=== PATIENT | male | born 1965 | race African-American/Black ===

== ENCOUNTER 2019-12-23 07:02 | Emergency (ER) | payer OTHER, MEDICAID, SELFPAY ==
[2019-12-23 07:03] VITALS: BP 188/144; PULSE 131; RESP 24; TEMP 36.9; O2SAT 98; BMI 29.9
--- NOTE | 2019-12-23 07:24 | ED.CHESTPAIN ---
HPI - Chest Pain General Chief Complaint: Chest Pain Stated Complaint: thinks he is having anxiety attack Time Seen by Provider: 12/23/19 07:08 Source: patient Mode of arrival: Ambulatory Limitations: no limitations History of Present Illness HPI narrative: Patient is a 54-year-old male who presents with heart palpitations and thinking he has an anxiety reaction. He recently started a new job with to go decreased he was supposed to get paid his on Sunday however it was not deposited in his bank account his is needing money he overall is very stressed out about this situation. He woke up this morning and felt like his heart was pounding any had some chest discomfort. He also feels like he is dizzy and lightheaded at times. He is intermittently short of breath but not with exertion. He is noted to be tachycardic in the 130s. He admits to drinking alcohol at least 4 beers on a daily basis. Yesterday he had 2 beers and 2 shots of whiskey. MD complaint: other (Palpitations) Review of Systems Review of Systems Narrative: GENERAL: Denies chills, fatigue, malaise, fever, sweats, travel HEENT: Denies sinus pain, ear pain, sore throat, difficulty swallowing, neck pain RESPIRATORY: Denies dyspnea, cough, wheezing, hemoptysis, sputum. CARDIOVASCULAR: See HPI GASTROINTESTINAL: Denies nausea, vomiting, abdominal pain, diarrhea, constipation, melena. : Denies dysuria, frequency, incontinence, hematuria, urinary retention, flank pain. MUSCULOSKELETAL: Denies weakness, joint pain, or bony pain SKIN: No rash, no erythema, no pruritus NEUROLOGIC: Denies weakness, dizziness, headache, numbness, change in speech, confusion PSYCHIATRIC: No concerning psychosocial issues. 12 point review of systems is negative except for those stated above and HPI Patient History Medical History Depression (Acute) Social History Smoking Status: Current every day smoker Smoking Status: Current every day smoker alcohol intake frequency: 3 or more drinks per day Alcohol type: beer Substance Use Type: does not use Exam Initial Vital Signs Initial Vital Signs: Vital Signs Temperature 98.5 F 12/23/19 07:03 Pulse Rate 131 H 12/23/19 07:03 Respiratory Rate 24 02/04/20 07:03 Blood Pressure 188/144 H 12/23/19 07:03 Pulse Oximetry 98 12/23/19 07:03 GENERAL: Well-appearing, well-nourished and in no acute distress. HEENT: Head atraumatic,EOMI, pupils reactive CARDIOVASCULAR: Tachycardic regular no murmur RESPIRATORY: Breath sounds equal bilaterally, no wheezes rales or rhonchi. ABDOMEN: Soft, nontender. Normoactive bowel sounds all 4 quadrants. No guarding or rebound. EXTREMITIES: Normal range of motion, no clubbing or edema. Neurovascularly intact NEUROLOGICAL: Alert and oriented x4.Normal gait and speech. Cranial nerves II through XII grossly intact. SKIN: Warm, dry, no laceration, no petechiae, no rashes or lesions. Scores HEART Score Heart Score history: Slightly Suspicious Heart Score EKG: Normal Heart Score Age: 45-64 years old Heart Score risk factors: No known risk factors Heart Score troponin: < or = to normal limit Heart Score Total: 1 PERC Score Age greater than or equal to 50 years: No Heart rate greater than or equal to 100 bpm: Yes Room Air O2 Sat less than 95%: No Unilateral leg swelling: No Recent trauma or surgery: No Hemoptysis: No Prior PE or DVT: No Hormone Use: No Total PERC Score: 1 Course Orders Ordered: ED Orders 12/23/19 07:42 XR chest 1V Stat 12/23/19 07:45 Complete Blood Count AUTO DIFF Stat Comprehensive Metabolic Panel Stat D Dimer Stat Lipase Stat Troponin & CK Cardiac Panel Stat Discontinued Medications Aspirin (Aspirin Chew) 324 mg PO NOW ONE Stop: 12/23/19 07:43 Last Admin: 12/23/19 08:03 Dose: 324 mg Documented by: BTONER Sodium Chloride (Normal Saline 0.9%) 1,000 mls @ 1,000 mls/hr IV CONT LUIS E Last Admin: 12/23/19 08:03 Dose: 1,000 mls/hr Documented by: BTONER Lorazepam (Ativan) 1 mg PO NOW ONE Stop: 12/23/19 07:43 Last Admin: 12/23/19 08:03 Dose: 1 mg Documented by: BTONER Vital Signs Vital signs: Vital Signs - 8 hr 12/23/19 07:03 12/23/19 08:00 12/23/19 09:00 Temperature 98.5 F Pulse Rate 131 H 123 H 112 H Respiratory Rate 24 18 14 Blood Pressure 188/144 H Blood Pressure [Left Arm] 145/99 H 172/105 H Pulse Oximetry 98 96 99 MDM - Chest Pain Lab Data Attestation: I reviewed the patient's lab results. Result diagrams: 12/23/19 07:45 12/23/19 07:45 Labs: Lab Results 12/23/19 12/23/19 12/23/19 Range/Units 07:45 07:45 07:45 WBC 5.1 (4.5-11.0) X10^3/uL RBC 5.39 (4.5-5.9) X10^6/uL Hgb 15.5 (13.5-17.5) g/dL Hct 45.1 (41-53) % MCV 83.8 (80-100) fL MCH 28.8 (26-34) PG MCHC 34.3 (30-36) % RDW 14.0 (11.6-14.8) % Plt Count 263 (150-400) X10^3/uL Neut % (Auto) 57.7 (50-75) % Lymph % (Auto) 32.3 (25-40) % [place] % (Auto) 7.2 (3-14) % Eos % (Auto) 1.8 L (2-4) % Baso % (Auto) 1.0 (0-2) % Neut # (Auto) 2900 (4003-5728) /uL Lymph # (Auto) 1600 (8875-7657) /uL [place] # (Auto) 400 (0-900) /uL Eos # (Auto) 100 (0-450) /uL Baso # (Auto) 0 (0-100) /uL D-Dimer < 200 (<230) ng/mL Sodium 137 (137-145) mmol/L Potassium 4.4 (3.4-5.1) mmol/L Chloride 103 (98-107) mmol/L Carbon Dioxide 23 (22-32) mmol/L BUN 14 (9-20) mg/dL Creatinine 1.00 (0.66-1.25) mg/dL Estimated GFR > 60.0 (>60) mL/min BUN/Creatinine Ratio 14.0 (6-22) Glucose 112 H (70-100) mg/dL Calcium 9.8 (8.4-10.2) mg/dL Total Bilirubin 0.9 (0.2-1.3) mg/dL AST 52 (17-59) IU/L ALT 46 (<50) IU/L Alkaline Phosphatase 105 (38-126) U/L Total Creatine Kinase 303 H (55-170) U/L CK-MB (CK-2) 1.23 (<2.37) ng/mL CK-MB (CK-2) Rel Index 0.4 L (1.5-5.0) % Troponin I < 0.012 (0.01-0.034) ng/mL Total Protein 9.1 H (6.3-8.2) g/dL Albumin 5.0 (3.5-5.0) g/dL Globulin 4.1 (1.7-4.1) g/dL Albumin/Globulin Ratio 1.2 (1.0-2.8) Lipase 99 (23-300) U/L Imaging Data Chest x-ray: Radiologist's Impression: PROCEDURE: XR CHEST 1V INDICATIONS: chest pain TECHNIQUE: One view of the chest was acquired. COMPARISON: None. FINDINGS: Surgical changes and devices: None. Lungs and pleura: Lungs are clear. No pleural effusions or pneumothorax. Mediastinum: Mediastinal contours appear normal. Heart size is normal. Bones and chest wall: No suspicious bony lesions. Overlying soft tissues appear unremarkable. IMPRESSION: Normal for age, source of current chest pain symptoms is not seen. Dictated by: Schuyler Burden M.D. on 12/23/2019 at 8:17 Approved by: Schuyler Burden M.D. on 12/23/2019 at 8:18 ECG Data Attestation: I personally reviewed and interpreted this ECG as follows: Prior ECG tracings: not available for review Interpretation: Sinus tachycardia rate 128 p.r. interval 150 QRS [address] elevation depression or T-wave inversions no priors to compare MDM Narrative Medical decision making narrative: Patient's heart rate significantly improved with Ativan and IV fluids. I think his symptoms are related to his situation. He has a negative D-dimer and low risk for PE. His troponin is also negative. Discharge Plan Departure Patient Disposition: Home Clinical Impression: Anxiety Discharge Date/Time: 12/23/19 09:54 Instructions: Anxiety Disorders Activity Restrictions/Additional Instructions: *You have been diagnosed with anxiety *What to do: At this time blood work is overall reassuring, what he likely fell today was anxiety *Continue to take medications as directed *Follow up with your primary care provider in 2-3 days *Return to ER if you should have increasing chest pain palpitations passing out or any new, worsening or concerning symptoms Stand Alone Forms: Work Release Note
--- NOTE | 2019-12-23 07:42 | DI.RAD.S_ITS ---
PROCEDURE: XR CHEST 1V INDICATIONS: chest pain TECHNIQUE: One view of the chest was acquired. COMPARISON: None. FINDINGS: Surgical changes and devices: None. Lungs and pleura: Lungs are clear. No pleural effusions or pneumothorax. Mediastinum: Mediastinal contours appear normal. Heart size is normal. Bones and chest wall: No suspicious bony lesions. Overlying soft tissues appear unremarkable. IMPRESSION: Normal for age, source of current chest pain symptoms is not seen. Dictated by: Schuyler Burden M.D. on 12/23/2019 at 8:17 Approved by: Schuyler Burden M.D. on 12/23/2019 at 8:18
[2019-12-23 08:00] VITALS: BP 145/99; PULSE 123; RESP 18; O2SAT 96
[2019-12-23] MEDS: LORazepam 0.5 MG TABLET 1 MG PO (08:03)
[2019-12-23] MEDS: SODIUM CHLORIDE 0.9% 1,000 ML 1000 ML IV (08:03)
[2019-12-23] MEDS: ASPIRIN 81 MG CHEW TAB 324 MG PO (08:03)
[2019-12-23 08:09] LABS: Add Manual Diff / Slide Review NO; Basophils Absolute Auto 0 /uL (0-100); Eosinophils Absolute Auto 100 /uL (0-450); Eosinophils Percent Auto 1.8 % (2-4); Hematocrit 45.1 % (41-53); Hemoglobin 15.5 g/dL (13.5-17.5); Lymphocytes Absolute Auto 1600 /uL (1100-4500); Lymphocytes Percent Auto 32.3 % (25-40); Mean Corpuscular HGB Conc 34.3 % (30-36); Mean Corpuscular Hemoglobin 28.8 PG (26-34); Mean Corpuscular Volume 83.8 fL (80-100); Monocytes Absolute Auto 400 /uL (0-900); Monocytes Percent Auto 7.2 % (3-14); Neutrophils Absolute Auto 2900 /uL (1500-7000); Neutrophils Percent Auto 57.7 % (50-75); Platelet Count 263 X10^3/uL (150-400); Red Blood Cell Count 5.39 X10^6/uL (4.5-5.9); White Blood Cell Count 5.1 X10^3/uL (4.5-11.0)
[2019-12-23 08:13] LABS: Alanine Aminotransferase 46 IU/L (<50); Albumin Globulin Ratio 1.2 (1.0-2.8); Alkaline Phosphatase 105 U/L (38-126); Aspartate Aminotransferase 52 IU/L (17-59); Bilirubin Total 0.9 mg/dL (0.2-1.3); Blood Urea Nitrogen 14 mg/dL (9-20); Calcium 9.8 mg/dL (8.4-10.2); Carbon Dioxide 23 mmol/L (22-32); Chloride 103 mmol/L (98-107); Creatine Kinase 303 U/L (55-170); Estimated Glomerular Filt Rate > 60.0 mL/min (>60); Globulin 4.1 g/dL (1.7-4.1); Glucose 112 mg/dL (70-100); HEMOLYSIS < 15 (0-50); Lipase 99 U/L (23-300); Potassium 4.4 mmol/L (3.4-5.1); Sodium 137 mmol/L (137-145); Total Protein 9.1 g/dL (6.3-8.2)
[2019-12-23 08:25] LABS: Troponin I < 0.012 ng/mL (0.01-0.034)
[2019-12-23 08:28] LABS: CKMB % Relative Index 0.4 % (1.5-5.0); Creatine Kinase MB 1.23 ng/mL (<2.37)
[2019-12-23 08:37] LABS: D Dimer < 200 ng/mL (<230)
[2019-12-23 09:00] VITALS: BP 172/105; PULSE 112; RESP 14; O2SAT 99
--- NOTE | 2020-01-06 11:53 | PC.NURSE ---
Late entry: NS started 08:03 @ 1000cc/hour completed 929. 1000 cc infused. No ill effect.
== END 2019-12-23 09:54 | disposition home or self-care (01) ==
PROVIDERS: Emergency Provider Emergency Medicine
DX: F41.9 Anxiety disorder, unspecified (principal); F32.9 Major depressive disorder, single episode, unspecified; R07.9 Chest pain, unspecified
CPT/HCPCS: 36415; 71045; 80053; 82550; 82553; 83690; 84484; 85025; 85379; 93005; 96360; 99284; 99285

== ENCOUNTER 2020-01-19 05:58 | Emergency (ER) | payer OTHER, MEDICAID, SELFPAY ==
--- NOTE | 2020-01-19 06:04 | ED_ITS ---
HPI - Dizziness <Cj Peace DO - Last Filed: 01/21/20 18:20> General Chief Complaint: Hypertension Stated Complaint: States dizzy spell, BP is up headache Time Seen by Provider: 01/19/20 06:03 Source: patient Mode of arrival: Ambulatory Limitations: no limitations History of Present Illness HPI Narrative: 54-year-old male daily smoker with history of anxiety and hypertension presents with a chief complaint of high blood pressure this morning along with headache and some fatigue. He states that he has been without his medications for about 3-4 days because he ran out. Though he has lived here for 3 months (he is from [place]) he has yet to establish with a primary care provider. He denies any significant chest pain or shortness of breath. He denies any fever, chills or cough. MD complaint: dizziness and lightheadedness Onset (ago): hour(s) Timing: gradual onset Description: lightheadedness History of similar episodes: Yes History of trauma: No Severity: moderate Relieving factors: nothing Exacerbating factors: nothing Related Data Previous Rx's Medication Instructions Recorded hydrochlorothiazide 25 mg PO DAILY #10 tab 01/19/20 Allergies Allergy/AdvReac Type Severity Reaction Status Date / Time No Known Drug Allergies Allergy Verified 01/19/20 07:02 Review of Systems <DO Bryn Sinclair Last Filed: 01/21/20 18:20> Constitutional Constitutional: Denies chills, Denies fatigue, Denies fever(s), Denies frequent falls, Reports headache(s), Denies lethargy and Denies weakness Eyes Eyes: Denies change in vision, Denies eye discharge, Denies irritation and Denies loss of vision ENT Ears, Nose, Mouth, and Throat: Denies change in voice, Denies dizziness, Reports headache(s), Denies neck pain, Denies sore throat and Denies throat swelling Cardiovascular Cardiovascular: Denies chest pain, Denies irregular heart rhythm, Reports lightheadedness, Denies palpitations, Denies dyspnea, Denies dyspnea on exertion and Denies orthopnea Respiratory Respiratory: Denies cough, Denies dyspnea, Denies dyspnea on exertion and Denies wheezing Gastrointestinal Gastrointestinal: Denies abdominal pain, Denies change in bowel habits, Denies diarrhea, Denies nausea and Denies vomiting Genitourinary Genitourinary: Denies hematuria, Denies flank pain, Denies urinary incontinence and Denies urinary urgency Musculoskeletal Musculoskeletal: Denies back pain, Denies muscle weakness, Denies neck pain, Denies numbness and Denies tingling Integumentary/Breasts Skin/Breast: Denies pruritus, Denies erythema, Denies rash and Denies wounds Neurologic Neurologic: Denies behavioral changes, Denies confusion, Denies dizziness, De nies frequent falls, Reports headache(s), Denies loss of vision, Denies numbness, Denies tingling and Denies weakness Psychiatric Psychiatric: Denies anxiety, Denies behavioral changes, Denies confusion, Denies depression, Denies homicidal ideation and Denies suicidal ideation Endocrine Endocrine: Denies fatigue, Denies flushing and Denies palpitations Hematologic/Lymphatic Hematologic/Lymphatic: Denies easy bruising Allergic/Immunologic Allergic/Immunologic: Denies urticaria, Denies throat swelling and Denies wheezing Patient History <Cj Peace DO - Last Filed: 01/21/20 18:20> Medical History Depression (Acute) Social History Smoking Status: Current every day smoker Smoking Status: Current every day smoker alcohol intake frequency: 3 or more drinks per day Alcohol type: beer Substance Use Type: does not use Exam <Cj Peace DO - Last Filed: 01/21/20 18:20> Narrative Exam Narrative: GENERAL: [54] year old patient appears stated age. Well- nourished, well-developed patient, in mild distress. Anxious HEAD: Atraumatic. Normocephalic. EYES: Pupils equal round and reactive. Extraocular motions intact. No scleral icterus. No injection or drainage. ENT: Nose without bleeding, purulent drainage. Throat without erythema, tonsillar hypertrophy or exudate. Airway patent. NECK: Trachea midline. Non tender CARDIOVASCULAR: Regular rate and rhythm without murmurs, gallops, or rubs. RESPIRATORY: Clear to auscultation. Breath sounds equal bilaterally. No wheezes, rales, or rhonchi. GASTROINTESTINAL: Abdomen soft, non-tender, nondistended. EXTREMITIES: No edema or joint tenderness. BACK: Nontender without deformity or crepitance. No flank tenderness. NEURO: AOx3. SKIN: No rash or erythema of visible areas Initial Vital Signs Initial Vital Signs: Vital Signs Temperature 99.0 F 01/19/20 06:18 Pulse Rate 118 H 01/19/20 06:18 Respiratory Rate 20 01/19/20 06:18 Blood Pressure 212/116 H 01/19/20 06:18 Pulse Oximetry 99 01/19/20 06:18 <Surjit Martinez DO - Last Filed: 01/19/20 08:50> Initial Vital Signs Initial Vital Signs: Vital Signs Temperature 99.0 F 01/19/20 06:18 Pulse Rate 118 H 01/19/20 06:18 Respiratory Rate 20 01/19/20 06:18 Blood Pressure 212/116 H 01/19/20 06:18 Pulse Oximetry 99 01/19/20 06:18 Course <Cj Peace DO - Last Filed: 01/21/20 18:20> Orders Ordered: Discontinued Medications Aspirin (Aspirin Chew) 324 mg PO NOW ONE Stop: 01/19/20 06:47 Last Admin: 01/19/20 06:56 Dose: 324 mg Documented by: SVETLANA Sodium Chloride (Normal Saline 0.9%) 1,000 mls @ 150 mls/hr IV CONT LUIS E Last Infusion: 01/19/20 09:06 Dose: 0 mls/hr Documented by: Admin: 01/19/20 06:55 Dose: 150 mls/hr Documented by: SVETLANA Ketorolac Tromethamine (Toradol) 15 mg IV NOW ONE Stop: 01/19/20 07:43 Last Admin: 01/19/20 07:54 Dose: 15 mg Documented by: KOREY Labetalol HCl (Trandate) 10 mg IV NOW ONE Stop: 01/19/20 06:47 Last Admin: 01/19/20 06:56 Dose: 10 mg Documented by: SVETLANA Lorazepam (Ativan) 0.5 mg IV NOW ONE Stop: 01/19/20 07:43 Last Admin: 01/19/20 07:55 Dose: 0.5 mg Documented by: KOREY Vital Signs Vital signs: Vital Signs - 8 hr 01/19/20 06:18 01/19/20 06:56 01/19/20 07:11 Temperature 99.0 F Pulse Rate 118 H 101 H 98 H Respiratory Rate 20 15 Blood Pressure 212/116 H 183/100 H Blood Pressure [Right Arm] 164/94 H Pulse Oximetry 99 98 <Surjit Martinez DO - Last Filed: 01/19/20 08:50> Orders Ordered: Discontinued Medications Aspirin (Aspirin Chew) 324 mg PO NOW ONE Stop: 01/19/20 06:47 Last Admin: 01/19/20 06:56 Dose: 324 mg Documented by: SVETLANA Sodium Chloride (Normal Saline 0.9%) 1,000 mls @ 150 mls/hr IV CONT LUIS E Last Infusion: 01/19/20 09:06 Dose: 0 mls/hr Documented by: Admin: 01/19/20 06:55 Dose: 150 mls/hr Documented by: SVETLANA Ketorolac Tromethamine (Toradol) 15 mg IV NOW ONE Stop: 01/19/20 07:43 Last Admin: 01/19/20 07:54 Dose: 15 mg Documented by: KOREY Labetalol HCl (Trandate) 10 mg IV NOW ONE Stop: 01/19/20 06:47 Last Admin: 01/19/20 06:56 Dose: 10 mg Documented by: SVETLANA Lorazepam (Ativan) 0.5 mg IV NOW ONE Stop: 01/19/20 07:43 Last Admin: 01/19/20 07:55 Dose: 0.5 mg Documented by: KOREY Vital Signs Vital signs: Vital Signs - 8 hr 01/19/20 06:18 01/19/20 06:56 01/19/20 07:11 Temperature 99.0 F Pulse Rate 118 H 101 H 98 H Respiratory Rate 20 15 Blood Pressure 212/116 H 183/100 H Blood Pressure [Right Arm] 164/94 H Pulse Oximetry 99 98 MDM - Dizziness <Cj Peace DO - Last Filed: 01/21/20 18:20> Lab Data Result diagrams: 01/19/20 04:15 01/19/20 04:15 Labs: Lab Results 01/19/20 01/19/20 Range/Units 04:15 04:15 WBC 5.5 (4.5-11.0) X10^3/uL RBC 4.88 (4.5-5.9) X10^6/uL Hgb 14.6 (13.5-17.5) g/dL Hct 41.7 (41-53) % MCV 85.6 (80-100) fL MCH 29.9 (26-34) PG MCHC 35.0 (30-36) % RDW 14.3 (11.6-14.8) % Plt Count 323 (150-400) X10^3/uL Neut % (Auto) 42.6 L (50-75) % Lymph % (Auto) 44.9 H (25-40) % [place] % (Auto) 9.0 (3-14) % Eos % (Auto) 2.5 (2-4) % Baso % (Auto) 1.0 (0-2) % Neut # (Auto) 2400 (2955-9889) /uL Lymph # (Auto) 2500 (0603-9479) /uL [place] # (Auto) 500 (0-900) /uL Eos # (Auto) 100 (0-450) /uL Baso # (Auto) 100 (0-100) /uL Sodium 141 (137-145) mmol/L Potassium 4.3 (3.4-5.1) mmol/L Chloride 103 (98-107) mmol/L Carbon Dioxide 27 (22-32) mmol/L BUN 15 (9-20) mg/dL Creatinine 0.80 (0.66-1.25) mg/dL Estimated GFR > 60.0 (>60) mL/min BUN/Creatinine Ratio 18.8 (6-22) Glucose 104 H (70-100) mg/dL Calcium 9.0 (8.4-10.2) mg/dL Total Bilirubin 0.5 (0.2-1.3) mg/dL AST 72 H (17-59) IU/L ALT 76 H (<50) IU/L Alkaline Phosphatase 93 (38-126) U/L Total Creatine Kinase 235 H (55-170) U/L CK-MB (CK-2) 0.74 (<2.37) ng/mL CK-MB (CK-2) Rel Index 0.3 L (1.5-5.0) % Troponin I < 0.012 (0.01-0.034) ng/mL Total Protein 8.3 H (6.3-8.2) g/dL Albumin 4.6 (3.5-5.0) g/dL Globulin 3.7 (1.7-4.1) g/dL Albumin/Globulin Ratio 1.2 (1.0-2.8) Lipase 84 (23-300) U/L <Surjit SteviemargotDO - Last Filed: 01/19/20 08:50> Lab Data Labs: Lab Results 01/19/20 01/19/20 Range/Units 04:15 04:15 WBC 5.5 (4.5-11.0) X10^3/uL RBC 4.88 (4.5-5.9) X10^6/uL Hgb 14.6 (13.5-17.5) g/dL Hct 41.7 (41-53) % MCV 85.6 (80-100) fL MCH 29.9 (26-34) PG MCHC 35.0 (30-36) % RDW 14.3 (11.6-14.8) % Plt Count 323 (150-400) X10^3/uL Neut % (Auto) 42.6 L (50-75) % Lymph % (Auto) 44.9 H (25-40) % [place] % (Auto) 9.0 (3-14) % Eos % (Auto) 2.5 (2-4) % Baso % (Auto) 1.0 (0-2) % Neut # (Auto) 2400 (3165-5456) /uL Lymph # (Auto) 2500 (3976-6381) /uL [place] # (Auto) 500 (0-900) /uL Eos # (Auto) 100 (0-450) /uL Baso # (Auto) 100 (0-100) /uL Sodium 141 (137-145) mmol/L Potassium 4.3 (3.4-5.1) mmol/L Chloride 103 (98-107) mmol/L Carbon Dioxide 27 (22-32) mmol/L BUN 15 (9-20) mg/dL Creatinine 0.80 (0.66-1.25) mg/dL Estimated GFR > 60.0 (>60) mL/min BUN/Creatinine Ratio 18.8 (6-22) Glucose 104 H (70-100) mg/dL Calcium 9.0 (8.4-10.2) mg/dL Total Bilirubin 0.5 (0.2-1.3) mg/dL AST 72 H (17-59) IU/L ALT 76 H (<50) IU/L Alkaline Phosphatase 93 (38-126) U/L Total Creatine Kinase 235 H (55-170) U/L CK-MB (CK-2) 0.74 (<2.37) ng/mL CK-MB (CK-2) Rel Index 0.3 L (1.5-5.0) % Troponin I < 0.012 (0.01-0.034) ng/mL Total Protein 8.3 H (6.3-8.2) g/dL Albumin 4.6 (3.5-5.0) g/dL Globulin 3.7 (1.7-4.1) g/dL Albumin/Globulin Ratio 1.2 (1.0-2.8) Lipase 84 (23-300) U/L MDM Narrative Medical decision making narrative: Dr Martinez: Received turned over from Dr Peace. Review patient's history and physical. Reviewed laboratory. Patient blood pressure is improved. He states he feels better with regard to his anxiety after the Ativan. Patient states that he is comfortable with going home. Does not appear to be any end-organ damage secondary to the hypertension. He was also given a phone number to contact to establish a primary provider in the area. His blood pressure medication was refilled. He was given return precautions and follow-up instructions. He expressed understanding and agreement. Discharge Plan Departure Patient Disposition: Home Clinical Impression: Anxiety Hypertension Qualifiers: Hypertension type: essential hypertension Qualified Code(s): I10 - Essential (primary) hypertension Discharge Date/Time: 01/19/20 09:05 Instructions: DI for High Blood Pressure Activity Restrictions/Additional Instructions: *You have been diagnosed with [hypertension and anxiety] *What to do: *Take medications as directed *Follow up with your primary care provider in 2-3 days, call for an appointment. Let them know you were seen in the Emergency Department and that we ask that you be seen in follow up *Return to ER if you should have any new, worsening or concerning symptoms Prescriptions: New hydrochlorothiazide 25 mg tablet 25 mg PO DAILY Qty: 10 RF: 0 Referrals: [facility] Resources [Outside] Stand Alone Forms: Work Release Note
[2020-01-19 06:18] VITALS: BP 212/116; PULSE 118; RESP 20; TEMP 37.2; O2SAT 99; BMI 30.7
--- NOTE | 2020-01-19 06:46 | DI.RAD.S_ITS ---
PROCEDURE: XR CHEST 1V INDICATIONS: Shortness of breath TECHNIQUE: One view of the chest was acquired. COMPARISON: [facility], CR, XR CHEST 1V, 12/23/2019, 7:47. FINDINGS: Surgical changes and devices: None. Lungs and pleura: Lungs are clear. No pleural effusions or pneumothorax. Mediastinum: Mediastinal contours appear normal. Heart size is normal. Bones and chest wall: No suspicious bony lesions. Overlying soft tissues appear unremarkable. IMPRESSION: No acute cardiopulmonary disease process. Dictated by: Kellie Sow MD, PhD on 01/19/2020 at 9:50 Approved by: Kellie Sow MD, PhD on 01/19/2020 at 9:50
[2020-01-19] MEDS: SODIUM CHLORIDE 0.9% 1,000 ML 150 ML IV (06:55)
[2020-01-19 06:56] VITALS: BP 183/100; PULSE 101
[2020-01-19] MEDS: ASPIRIN 81 MG CHEW TAB 324 MG PO (06:56)
[2020-01-19] MEDS: LABETALOL 20 MG/4 ML SYRINGE 10 MG IV (06:56)
[2020-01-19 06:58] LABS: Add Manual Diff / Slide Review NO; Basophils Absolute Auto 100 /uL (0-100); Eosinophils Absolute Auto 100 /uL (0-450); Eosinophils Percent Auto 2.5 % (2-4); Hematocrit 41.7 % (41-53); Hemoglobin 14.6 g/dL (13.5-17.5); Lymphocytes Absolute Auto 2500 /uL (1100-4500); Lymphocytes Percent Auto 44.9 % (25-40); Mean Corpuscular Hemoglobin 29.9 PG (26-34); Mean Corpuscular Volume 85.6 fL (80-100); Monocytes Absolute Auto 500 /uL (0-900); Neutrophils Absolute Auto 2400 /uL (1500-7000); Neutrophils Percent Auto 42.6 % (50-75); Platelet Count 323 X10^3/uL (150-400); Red Blood Cell Count 4.88 X10^6/uL (4.5-5.9); Red Cell Distribution Width 14.3 % (11.6-14.8); White Blood Cell Count 5.5 X10^3/uL (4.5-11.0)
[2020-01-19 07:01] LABS: Alanine Aminotransferase 76 IU/L (<50); Albumin 4.6 g/dL (3.5-5.0); Albumin Globulin Ratio 1.2 (1.0-2.8); Alkaline Phosphatase 93 U/L (38-126); Aspartate Aminotransferase 72 IU/L (17-59); BUN Creatinine Ratio 18.8 (6-22); Bilirubin Total 0.5 mg/dL (0.2-1.3); Blood Urea Nitrogen 15 mg/dL (9-20); Carbon Dioxide 27 mmol/L (22-32); Chloride 103 mmol/L (98-107); Creatine Kinase 235 U/L (55-170); Estimated Glomerular Filt Rate > 60.0 mL/min (>60); Globulin 3.7 g/dL (1.7-4.1); Glucose 104 mg/dL (70-100); HEMOLYSIS 40 (0-50); Lipase 84 U/L (23-300); Potassium 4.3 mmol/L (3.4-5.1); Sodium 141 mmol/L (137-145); Total Protein 8.3 g/dL (6.3-8.2)
[2020-01-19 07:11] VITALS: BP 164/94; PULSE 98; RESP 15; O2SAT 98
[2020-01-19 07:13] LABS: Troponin I < 0.012 ng/mL (0.01-0.034)
[2020-01-19 07:17] LABS: CKMB % Relative Index 0.3 % (1.5-5.0); Creatine Kinase MB 0.74 ng/mL (<2.37)
[2020-01-19] MEDS: KETOROLAC 60 MG/2 ML VIAL 15 MG IV (07:54)
[2020-01-19] MEDS: LORazepam 2 MG/ML INJ 0.5 MG IV (07:55)
[2020-01-19 09:05] VITALS: BP 176/94; PULSE 94; RESP 12; O2SAT 100
== END 2020-01-19 09:05 | disposition home or self-care (01) ==
PROVIDERS: Emergency Medicine; Emergency Provider Emergency Medicine
DX: F41.9 Anxiety disorder, unspecified (principal); I10 Essential (primary) hypertension; R51 Headache
CPT/HCPCS: 71045; 80053; 82550; 82553; 83690; 84484; 85025; 93005; 93010; 96361; 96374; 96375; 99284; J1885; J2060

== ENCOUNTER 2020-01-27 05:10 | Emergency (ER) | payer OTHER, MEDICAID, SELFPAY ==
--- NOTE | 2020-01-27 05:15 | DI.CT.S_ITS ---
PROCEDURE: CT ABDOMEN PELVIS W CON INDICATIONS: vomiting and diarrhea for 24 hours, right upper and lower abdominal pain TECHNIQUE: After the administration of intravenous contrast, 5 mm thick sections acquired from the diaphragm to the symphysis. 5 mm coronal and sagittal reformats were acquired. For radiation dose reduction, the following was used: automated exposure control, adjustment of mA and/or kV according to patient size. COMPARISON: None. FINDINGS: Image quality: Excellent. ABDOMEN: Lung bases: There is mild dependent atelectasis bilaterally. Within the left lower lobe, there is a small peripheral pulmonary nodule measuring up to 3 mm. Heart size is normal. Solid organs: Evaluation of the liver demonstrates no focal hepatic lesions. The gallbladder appears within normal limits without calcified gallstones. Biliary system is non-dilated. Pancreas enhances normally. No peripancreatic fat stranding or fluid collections. No pancreatic duct dilatation. The spleen is normal in size. No adrenal nodules. Kidneys demonstrate no hydronephrosis. Peritoneum and bowel: Bowel loops demonstrate normal wall thickness and caliber. The appendix is normal in appearance. There are a few colonic diverticula without acute diverticulitis. No free fluid or air. Nodes and vessels: No retroperitoneal or mesenteric adenopathy by size criteria. Aorta and inferior vena cava are normal in size. Miscellaneous: No ventral hernias. PELVIS: Genitourinary: There is marked concentric bladder wall thickening. The prostate demonstrates mild heterogeneous enlargement. Miscellaneous: No inguinal hernias or adenopathy. Bones: No suspicious bony lesions. No vertebral body compression fractures. IMPRESSION: 1. No evidence of bowel obstruction or appendicitis. 2. Colonic diverticulosis without acute diverticulitis. 3. Mild bladder wall thickening may reflect a mild cystitis or sequelae of chronic bladder outlet obstruction. Recommend correlation with urinalysis. Concordant with preliminary interpretation. Dictated by: Booker Brian M.D. on 01/27/2020 at 10:56 Approved by: Booker Brian M.D. on 01/27/2020 at 11:00
[2020-01-27 05:16] VITALS: BP 168/102; PULSE 122; RESP 18; TEMP 37.2; O2SAT 97; BMI 30.7
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
[2020-01-27 05:23] LABS: Add Manual Diff / Slide Review NO; Basophils Absolute Auto 100 /uL (0-100); Basophils Percent Auto 1.1 % (0-2); Eosinophils Absolute Auto 100 /uL (0-450); Eosinophils Percent Auto 2.1 % (2-4); Hematocrit 46.6 % (41-53); Hemoglobin 16.2 g/dL (13.5-17.5); Lymphocytes Absolute Auto 3400 /uL (1100-4500); Lymphocytes Percent Auto 58.7 % (25-40); Mean Corpuscular HGB Conc 34.8 % (30-36); Mean Corpuscular Hemoglobin 29.7 PG (26-34); Mean Corpuscular Volume 85.3 fL (80-100); Monocytes Absolute Auto 500 /uL (0-900); Monocytes Percent Auto 8.7 % (3-14); Neutrophils Absolute Auto 1700 /uL (1500-7000); Neutrophils Percent Auto 29.4 % (50-75); Platelet Count 270 X10^3/uL (150-400); Red Blood Cell Count 5.46 X10^6/uL (4.5-5.9); Red Cell Distribution Width 13.7 % (11.6-14.8); White Blood Cell Count 5.8 X10^3/uL (4.5-11.0)
[2020-01-27] MEDS: SODIUM CHLORIDE 0.9% 1,000 ML 1000 ML IV (05:29)
[2020-01-27] MEDS: ONDANSETRON 4 MG/2 ML INJ IV (05:29)
[2020-01-27] MEDS: KETOROLAC 60 MG/2 ML VIAL 15 MG IV (05:29)
[2020-01-27 05:30] LABS: Alanine Aminotransferase 63 IU/L (<50); Albumin Globulin Ratio 1.1 (1.0-2.8); Alkaline Phosphatase 106 U/L (38-126); Aspartate Aminotransferase 70 IU/L (17-59); BUN Creatinine Ratio 13.4 (6-22); Bilirubin Total 0.6 mg/dL (0.2-1.3); Blood Urea Nitrogen 17 mg/dL (9-20); Calcium 9.4 mg/dL (8.4-10.2); Carbon Dioxide 22 mmol/L (22-32); Chloride 100 mmol/L (98-107); Estimated Glomerular Filt Rate 59.3 mL/min (>60); Globulin 4.4 g/dL (1.7-4.1); Glucose 125 mg/dL (70-100); Lipase 353 U/L (23-300); Potassium 3.8 mmol/L (3.4-5.1); Sodium 138 mmol/L (137-145); Total Protein 9.4 g/dL (6.3-8.2)
[2020-01-27 05:32] LABS: HEMOLYSIS 80 (0-50)
[2020-01-27 05:47] LABS: Creatine Kinase 356 U/L (55-170)
[2020-01-27 06:00] LABS: Troponin I 0.023 ng/mL (0.01-0.034)
[2020-01-27 06:03] LABS: CKMB % Relative Index 0.4 % (1.5-5.0)
[2020-01-27] MEDS: LORazepam 2 MG/ML INJ 1 MG IV (06:16)
[2020-01-27 06:23] VITALS: BP 167/90; PULSE 102; RESP 13; O2SAT 97
[2020-01-27 06:51] LABS: Bacteria Urine None Seen; WBC Urine None Seen (0-5/HPF)
[2020-01-27 06:54] LABS: Appearance Urine UA CLEAR; Bilirubin Urine UA NEGATIVE (NEGATIVE); Color Urine UA YELLOW; Glucose Urine UA NEGATIVE (Negative); Ketones Urine UA NEGATIVE (NEGATIVE); Leukocyte Esterase Urine UA NEGATIVE (NEGATIVE); Nitrite Urine UA NEGATIVE (Negative); Occult Blood Urine UA NEGATIVE (Negative); Protein Urine UA NEGATIVE (Negative); Specific Gravity Urine UA <=1.005 (1.000-1.035); Urobilinogen Urine UA 0.2 E.U./dL (0.2); pH Urine UA 5.5 (4.5-8.0)
[2020-01-27 07:01] LABS: Culture Indicated Urine Cult Not Indicated; RBC Urine 0-1/HPF (0-5/HPF); Squamous Epithelial Cell Urine 0-1 /HPF (0-5/HPF)
[2020-01-27 07:30] VITALS: BP 168/95; PULSE 104; RESP 13; TEMP 36.9; O2SAT 97
[2020-01-27] MEDS: ONDANSETRON 4 MG ODT PREPACK 1 BOTTLE MISC (08:10)
== END 2020-01-27 08:13 | disposition home or self-care (01) ==
PROVIDERS: Emergency Provider Emergency Medicine
DX: R10.9 Unspecified abdominal pain (principal); R11.10 Vomiting, unspecified; R19.7 Diarrhea, unspecified; R91.1 Solitary pulmonary nodule; I10 Essential (primary) hypertension; F32.9 Major depressive disorder, single episode, unspecified; R00.0 Tachycardia, unspecified
CPT/HCPCS: 74177; 80053; 81001; 82550; 82553; 83690; 84484; 85025; 93005; 93010; 96361; 96374; 96375; 99283; 99284; J1885; J2060; J2405; Q9967

== ENCOUNTER 2020-01-29 07:48 | Emergency (ER) | payer OTHER, MEDICAID, SELFPAY ==
[2020-01-29] VITALS (7 sets, daily range): BP systolic 160–201; BP diastolic 91–116; PULSE 98–126; RESP 13–30; TEMP 36.9; O2SAT 98–100
--- NOTE | 2020-01-29 08:11 | DI.RAD.S_ITS ---
PROCEDURE: XR CHEST 1V INDICATIONS: suspected sepsis TECHNIQUE: One view of the chest was acquired. COMPARISON: [facility], CR, XR CHEST 1V, 01/19/2020, 6:50. [facility], CR, XR CHEST 1V, 12/23/2019, 7:47. FINDINGS: Surgical changes and devices: None. Lungs and pleura: Lungs are clear. No pleural effusions or pneumothorax. Mediastinum: Mediastinal contours appear normal. Heart size is normal. Bones and chest wall: No suspicious bony lesions. Overlying soft tissues appear unremarkable. IMPRESSION: Normal for age, source of current sepsis syndrome symptoms is not seen. Dictated by: Schuyler Burden M.D. on 01/29/2020 at 8:44 Approved by: Schuyler Burden M.D. on 01/29/2020 at 8:44
--- NOTE | 2020-01-29 08:18 | ED.CHESTPAIN ---
HPI - Chest Pain General Chief Complaint: Chest Pain Stated Complaint: CHEST PAIN,NAUSEA Time Seen by Provider: 01/29/20 08:18 Source: patient Mode of arrival: Ambulatory Limitations: no limitations History of Present Illness HPI narrative: The patient is a 54-year-old male who states that he was seen last week for chest pain. His chest pain today is worse than it was before. His chest pain started at 2:00 a.m. in the morning and is 8 to 9/10 in intensity. It is a sharp stabbing pain and discomfort that occurs only with coughing deep breathing twisting and moving. He states that he started vomiting at work this morning and once sent home. He became very scared and frightened is a came into the emergency department to be evaluated. He states that it hurts to deep breathe he has had a cough that has been minimally productive of sputum that is clear without blood. He has had rapid heart rate with dizziness. He complains of diffuse muscle aches and joint aches has had some abdominal cramps with nausea vomiting and liquid diarrhea. He has had no melena or hematochezia. He denies any urinary symptoms. He has had no significant nasal drainage or sinus congestion but has had a sore throat with mild headache. He has had no fever or chills but states that he has hot flashes with sweats. He denies a history of asthma COPD myocardial infarction congestive heart failure diabetes but admits to hypertension. He states that he smokes cigarettes and drinks alcohol. Related Data Home Medications Medication Instructions Recorded Confirmed sertraline 50 mg PO DAILY 01/29/20 01/29/20 Previous Rx's Medication Instructions Recorded hydrochlorothiazide 25 mg PO DAILY #10 tab 01/19/20 cyclobenzaprine 10 mg PO TID PRN #15 tab 01/29/20 loperamide 2 mg PO Q4H PRN #14 tab 01/29/20 naproxen [Naprosyn] 500 mg PO BID PRN #20 tab 01/29/20 ondansetron HCl [Zofran] 4 mg PO Q6H PRN #14 tab 01/29/20 prochlorperazine maleate 10 mg PO Q6H PRN #10 tab 01/29/20 [Compazine] Allergies Allergy/AdvReac Type Severity Reaction Status Date / Time No Known Drug Allergies Allergy Verified 01/27/20 05:24 Review of Systems Review of Systems Narrative: All review of systems were negative except for those mentioned in the history of present illness. Patient History Medical History Depression (Acute) Social History Smoking Status: Current every day smoker Smoking Status: Current every day smoker alcohol intake frequency: 3 or more drinks per day Alcohol type: beer Substance Use Type: does not use Exam Narrative Exam Narrative: PHYSICAL EXAM: CONSTITUTIONAL: Awake, Alert, Oriented, Coherent, Cooperative in NAD. Does not appear toxic or ill. HEAD: AT/NC EENT: PERRL, FROM of eyes, no discharge, No epistaxis or nasal drainage Oral mucosa is moist and pink, posterior pharynx is without erythema or exudate. NECK: Supple, no obvious JVD, Trachea is midline without stridor, no palpable LN SPINE: No gross deformity, no palpable tenderness of the cervical, thoracic, lumbar or sacral spine. No CVA tenderness. THORAX: No deformity, retractions, chest wall is tender along the upper left costal sternal margin which mimics the pain that he describes. He also complains of tenderness to palpation over the right and left posterior ribs lateral to the spinal column. There is no muscle spasms or paraspinous muscle spasms.. LUNGS: Clear with symmetrical breath sounds without respiratory distress HEART: Normal heart tones, tachycardic with regular rhythm and without a murmur ABDOMEN: Soft, diffuse tenderness in all 4 quadrants without guarding rebound rigidity or palpable organomegaly. EXTREMITIES: No edema, cyanosis, deformity or tenderness. SKIN: No rash, bruising, petechiae or purpura. NEURO: Awake, alert, oriented, conversive, cranial nerves II-XII are symmetrical and normal, moves all 4 extremities and is ambulatory Initial Vital Signs Initial Vital Signs: Vital Signs Temperature 98.4 F 01/29/20 07:55 Pulse Rate 126 H 01/29/20 07:55 Respiratory Rate 30 H 01/29/20 07:55 Blood Pressure 201/116 H 01/29/20 07:55 Pulse Oximetry 99 01/29/20 07:55 Course Course Course Narrative: 10:00 the patient's laboratory studies were reviewed and found to be negative. The patient's probably clinically dehydrated with his nausea and vomiting. He will be administered a 2nd L of fluid and his heart rate re-evaluated. He remains tachycardic. Chest x-ray was negative for any acute pathology. His D-dimer is less than 200 and his lactic acid is 1.4. Patient is not septic at this time. 1256: The patient has received 2.5 L of fluid at this time and his heart rate has decreased to between 90 and 95. The plan is to discharge the patient S soonest his 3rd L fluid is complete. The patient will be discharged on Naprosyn for pain and discomfort, Flexeril for muscle spasms, Zofran for nausea and vomiting and Compazine tablets for nausea and vomiting uncontrolled by the Zofran. Orders Ordered: Discontinued Medications Cyclobenzaprine HCl (Flexeril) 10 mg PO NOW ONE Stop: 01/29/20 08:55 Last Admin: 01/29/20 09:13 Dose: 10 mg Documented by: DARIEL Sodium Chloride (Normal Saline 0.9%) 1,000 mls @ 1,000 mls/hr IV BOLUS ONE Stop: 01/29/20 09:10 Last Infusion: 01/29/20 10:22 Dose: 0 mls/hr Documented by: Admin: 01/29/20 08:53 Dose: 1,000 mls/hr Documented by: DARIEL Sodium Chloride (Normal Saline 0.9%) 1,000 mls @ 1,000 mls/hr IV BOLUS ONE Stop: 01/29/20 11:24 Last Infusion: 01/29/20 12:07 Dose: 0 mls/hr Documented by: Admin: 01/29/20 10:50 Dose: 1,000 mls/hr Documented by: GOMEZ Sodium Chloride (Normal Saline 0.9%) 1,000 mls @ 1,000 mls/hr IV BOLUS ONE Stop: 01/29/20 13:07 Last Infusion: 01/29/20 13:10 Dose: 0 mls/hr Documented by: Admin: 01/29/20 12:27 Dose: 1,000 mls/hr Documented by: DARIEL Ketorolac Tromethamine (Toradol) 30 mg IV NOW ONE Stop: 01/29/20 09:10 Last Admin: 01/29/20 09:12 Dose: 30 mg Documented by: DARIEL Lorazepam (Ativan) 1 mg PO NOW ONE Stop: 01/29/20 09:10 Last Admin: 01/29/20 09:13 Dose: 1 mg Documented by: DARIEL Ondansetron HCl (Zofran) 4 mg IV NOW ONE Stop: 01/29/20 08:12 Last Admin: 01/29/20 08:54 Dose: 4 mg Documented by: DARIEL Vital Signs Vital signs: Vital Signs - 8 hr 01/29/20 07:55 01/29/20 08:30 01/29/20 09:07 Temperature 98.4 F Pulse Rate 126 H 118 H 118 H Respiratory Rate 30 H 17 22 Blood Pressure 201/116 H Blood Pressure [Left Arm] 169/103 H 187/97 H Pulse Oximetry 99 99 99 01/29/20 10:00 01/29/20 11:11 01/29/20 12:55 Temperature Pulse Rate 118 H 109 H 98 H Respiratory Rate 18 18 Blood Pressure Blood Pressure [Left Arm] 163/101 H 160/102 H 164/97 H Pulse Oximetry 99 98 MDM - Chest Pain Lab Data Result diagrams: 01/29/20 08:43 01/29/20 08:43 Labs: Lab Results 01/29/20 01/29/20 01/29/20 Range/Units 08:43 08:43 08:43 WBC 4.9 (4.5-11.0) X10^3/uL RBC 5.08 (4.5-5.9) X10^6/uL Hgb 14.7 (13.5-17.5) g/dL Hct 43.3 (41-53) % MCV 85.2 (80-100) fL MCH 28.9 (26-34) PG MCHC 33.9 (30-36) % RDW 13.5 (11.6-14.8) % Plt Count 224 (150-400) X10^3/uL Neut % (Auto) 58.7 (50-75) % Lymph % (Auto) 32.5 (25-40) % [place] % (Auto) 7.0 (3-14) % Eos % (Auto) 1.0 L (2-4) % Baso % (Auto) 0.8 (0-2) % Neut # (Auto) 2900 (5754-6302) /uL Lymph # (Auto) 1600 (3254-3448) /uL [place] # (Auto) 300 (0-900) /uL Eos # (Auto) 100 (0-450) /uL Baso # (Auto) 0 (0-100) /uL ESR 4 (0-15) MM/HR PT 11.6 (10.1-12.7) SECONDS INR 1.0 (0.9-1.3) APTT 32 (26.4-36.2) SECONDS D-Dimer < 200 (<230) ng/mL Sodium 136 L (137-145) mmol/L Potassium 4.1 (3.4-5.1) mmol/L Chloride 101 (98-107) mmol/L Carbon Dioxide 27 (22-32) mmol/L BUN 11 (9-20) mg/dL Creatinine 0.91 (0.66-1.25) mg/dL Estimated GFR > 60.0 (>60) mL/min BUN/Creatinine Ratio 12.1 (6-22) Glucose 110 H (70-100) mg/dL Lactate (0.7-2.1) mmol/L Calcium 9.8 (8.4-10.2) mg/dL Total Bilirubin 1.0 (0.2-1.3) mg/dL AST 82 H (17-59) IU/L ALT 69 H (<50) IU/L Alkaline Phosphatase 111 (38-126) U/L Total Creatine Kinase 256 H (55-170) U/L CK-MB (CK-2) 0.89 (<2.37) ng/mL CK-MB (CK-2) Rel Index 0.3 L (1.5-5.0) % Troponin I < 0.012 (0.01-0.034) ng/mL C-Reactive Protein < 0.5 (<1.0) mg/dL Total Protein 8.7 H (6.3-8.2) g/dL Albumin 4.9 (3.5-5.0) g/dL Globulin 3.8 (1.7-4.1) g/dL Albumin/Globulin Ratio 1.3 (1.0-2.8) Lipase 117 D (23-300) U/L Procalcitonin (<0.5) ng/mL Urine Color Urine Appearance Urine pH (4.5-8.0) Ur Specific [place] (1.000-1.035) Urine Protein (Negative) Urine Glucose (UA) (Negative) g/dL Urine Ketones (NEGATIVE) Urine Occult Blood (Negative) Urine Nitrate (Negative) Urine Bilirubin (NEGATIVE) Urine Urobilinogen (0.2) E.U./dL Ur Leukocyte Esterase (NEGATIVE) Urine RBC (0-5/HPF) Urine WBC (0-5/HPF) Urine Bacteria (None) Ur Culture Indicated? Influenza A (RT-PCR) (NEGATIVE) Influenza B (RT-PCR) (NEGATIVE) 01/29/20 01/29/20 01/29/20 Range/Units 08:43 08:43 08:43 WBC (4.5-11.0) X10^3/uL RBC (4.5-5.9) X10^6/uL Hgb (13.5-17.5) g/dL Hct (41-53) % MCV (80-100) fL MCH (26-34) PG MCHC (30-36) % RDW (11.6-14.8) % Plt Count (150-400) X10^3/uL Neut % (Auto) (50-75) % Lymph % (Auto) (25-40) % [place] % (Auto) (3-14) % Eos % (Auto) (2-4) % Baso % (Auto) (0-2) % Neut # (Auto) (1686-0462) /uL Lymph # (Auto) (6285-1118) /uL [place] # (Auto) (0-900) /uL Eos # (Auto) (0-450) /uL Baso # (Auto) (0-100) /uL ESR (0-15) MM/HR PT (10.1-12.7) SECONDS INR (0.9-1.3) APTT (26.4-36.2) SECONDS D-Dimer (<230) ng/mL Sodium (137-145) mmol/L Potassium (3.4-5.1) mmol/L Chloride (98-107) mmol/L Carbon Dioxide (22-32) mmol/L BUN (9-20) mg/dL Creatinine (0.66-1.25) mg/dL Estimated GFR (>60) mL/min BUN/Creatinine Ratio (6-22) Glucose (70-100) mg/dL Lactate 1.4 (0.7-2.1) mmol/L Calcium (8.4-10.2) mg/dL Total Bilirubin (0.2-1.3) mg/dL AST (17-59) IU/L ALT (<50) IU/L Alkaline Phosphatase (38-126) U/L Total Creatine Kinase (55-170) U/L CK-MB (CK-2) (<2.37) ng/mL CK-MB (CK-2) Rel Index (1.5-5.0) % Troponin I (0.01-0.034) ng/mL C-Reactive Protein (<1.0) mg/dL Total Protein (6.3-8.2) g/dL Albumin (3.5-5.0) g/dL Globulin (1.7-4.1) g/dL Albumin/Globulin Ratio (1.0-2.8) Lipase (23-300) U/L Procalcitonin < 0.05 (<0.5) ng/mL Urine Color Urine Appearance Urine pH (4.5-8.0) Ur Specific [place] (1.000-1.035) Urine Protein (Negative) Urine Glucose (UA) (Negative) g/dL Urine Ketones (NEGATIVE) Urine Occult Blood (Negative) Urine Nitrate (Negative) Urine Bilirubin (NEGATIVE) Urine Urobilinogen (0.2) E.U./dL Ur Leukocyte Esterase (NEGATIVE) Urine RBC (0-5/HPF) Urine WBC (0-5/HPF) Urine Bacteria (None) Ur Culture Indicated? Influenza A (RT-PCR) Flu a negative (NEGATIVE) Influenza B (RT-PCR) Flu b negative (NEGATIVE) 01/29/20 Range/Units 08:57 WBC (4.5-11.0) X10^3/uL RBC (4.5-5.9) X10^6/uL Hgb (13.5-17.5) g/dL Hct (41-53) % MCV (80-100) fL MCH (26-34) PG MCHC (30-36) % RDW (11.6-14.8) % Plt Count (150-400) X10^3/uL Neut % (Auto) (50-75) % Lymph % (Auto) (25-40) % [place] % (Auto) (3-14) % Eos % (Auto) (2-4) % Baso % (Auto) (0-2) % Neut # (Auto) (3951-8638) /uL Lymph # (Auto) (1170-0528) /uL [place] # (Auto) (0-900) /uL Eos # (Auto) (0-450) /uL Baso # (Auto) (0-100) /uL ESR (0-15) MM/HR PT (10.1-12.7) SECONDS INR (0.9-1.3) APTT (26.4-36.2) SECONDS D-Dimer (<230) ng/mL Sodium (137-145) mmol/L Potassium (3.4-5.1) mmol/L Chloride (98-107) mmol/L Carbon Dioxide (22-32) mmol/L BUN (9-20) mg/dL Creatinine (0.66-1.25) mg/dL Estimated GFR (>60) mL/min BUN/Creatinine Ratio (6-22) Glucose (70-100) mg/dL Lactate (0.7-2.1) mmol/L Calcium (8.4-10.2) mg/dL Total Bilirubin (0.2-1.3) mg/dL AST (17-59) IU/L ALT (<50) IU/L Alkaline Phosphatase (38-126) U/L Total Creatine Kinase (55-170) U/L CK-MB (CK-2) (<2.37) ng/mL CK-MB (CK-2) Rel Index (1.5-5.0) % Troponin I (0.01-0.034) ng/mL C-Reactive Protein (<1.0) mg/dL Total Protein (6.3-8.2) g/dL Albumin (3.5-5.0) g/dL Globulin (1.7-4.1) g/dL Albumin/Globulin Ratio (1.0-2.8) Lipase (23-300) U/L Procalcitonin (<0.5) ng/mL Urine Color Yellow Urine Appearance Clear Urine pH 7.0 (4.5-8.0) Ur Specific [place] 1.010 (1.000-1.035) Urine Protein Negative (Negative) Urine Glucose (UA) Negative (Negative) g/dL Urine Ketones Negative (NEGATIVE) Urine Occult Blood Negative (Negative) Urine Nitrate Negative (Negative) Urine Bilirubin Negative (NEGATIVE) Urine Urobilinogen 0.2 (0.2) E.U./dL Ur Leukocyte Esterase Negative (NEGATIVE) Urine RBC 0-1/hpf (0-5/HPF) Urine WBC None seen (0-5/HPF) Urine Bacteria Occasional (0-1) (None) Ur Culture Indicated? Cult not indicated Influenza A (RT-PCR) (NEGATIVE) Influenza B (RT-PCR) (NEGATIVE) ECG Data Attestation: I personally reviewed and interpreted this ECG as follows: Interpretation: The patient's EKG obtained on January 28 at 08:0 12:47 a.m. reveals a sinus tachycardia with a ventricular rate of 117. QRS is normal duration at 94 milliseconds. QTC is slightly prolonged at 462 milliseconds. [place] is normal. The patient has a Q-wave in leads V1 with a small R-wave in V2. T-waves are inverted in leads III and AVF suggestive of inferior ischemia at some time. ST segments are nonspecific. There are few premature ventricular contractions. There are no acute diagnostic ST or T-wave changes. Discharge Plan Departure Patient Disposition: Home Clinical Impression: Cough, Chest wall pain, Sinus tachycardia, Dehydration Diarrhea Qualifiers: Diarrhea type: unspecified type Qualified Code(s): R19.7 - Diarrhea, unspecified Nausea and vomiting Qualifiers: Vomiting type: unspecified Vomiting Intractability: non-intractable Qualified Code(s): R11.2 - Nausea with vomiting, unspecified Discharge Date/Time: 01/29/20 13:27 Instructions: Diarrhea (Alternative Therapy), Diarrhea, DI for Costochondritis, DI for Nausea -- Adult, DI for Chest Pain, Loperamide (By mouth) Activity Restrictions/Additional Instructions: 1. If not better follow-up with your primary care physician in 48-72 hours. 2. Drink 2-4 L of fluid per day to keep herself hydrated for the next 3-5 days. 3 . For diarrhea use the loperamide as prescribed. 4. For nausea and vomiting take 4 mg of Zofran initially every 6 hours. If this does not work you can double the dose to 8 mg every 6 hours. If the Zofran does not work you can take Compazine 10 mg tablets 3 times a day to help with the nausea and vomiting. 5 for persistent chest pain and back pain on relieved by the Naprosyn and muscle spasms take the Flexeril/cyclobenzaprine. 3 times a day as prescribed. Prescriptions: New cyclobenzaprine 10 mg tablet 10 mg PO TID PRN (Reason: muscle spasm) Qty: 15 RF: 0 naproxen [Naprosyn] 500 mg tablet 500 mg PO BID PRN (Reason: pain) Qty: 20 RF: 0 loperamide 2 mg tablet 2 mg PO Q4H PRN (Reason: loose stool) Qty: 14 RF: 0 ondansetron HCl [Zofran] 4 mg tablet 4 mg PO Q6H PRN (Reason: nausea and vomiting) Qty: 14 RF: 0 prochlorperazine maleate [Compazine] 10 mg tablet 10 mg PO Q6H PRN (Reason: nausea and vomiting) Qty: 10 RF: 0 No Action hydrochlorothiazide 25 mg tablet 25 mg PO DAILY Qty: 10 RF: 0 sertraline 50 mg tablet 50 mg PO DAILY RF: 0
[2020-01-29] MEDS: SODIUM CHLORIDE 0.9% 1,000 ML 1000 ML IV ×3 (08:53→12:27)
[2020-01-29] MEDS: ONDANSETRON 4 MG/2 ML INJ IV (08:54)
[2020-01-29 08:58] LABS: Add Manual Diff / Slide Review NO; Basophils Absolute Auto 0 /uL (0-100); Basophils Percent Auto 0.8 % (0-2); Eosinophils Absolute Auto 100 /uL (0-450); Hematocrit 43.3 % (41-53); Hemoglobin 14.7 g/dL (13.5-17.5); Lymphocytes Absolute Auto 1600 /uL (1100-4500); Lymphocytes Percent Auto 32.5 % (25-40); Mean Corpuscular HGB Conc 33.9 % (30-36); Mean Corpuscular Hemoglobin 28.9 PG (26-34); Mean Corpuscular Volume 85.2 fL (80-100); Monocytes Absolute Auto 300 /uL (0-900); Neutrophils Absolute Auto 2900 /uL (1500-7000); Neutrophils Percent Auto 58.7 % (50-75); Platelet Count 224 X10^3/uL (150-400); Red Blood Cell Count 5.08 X10^6/uL (4.5-5.9); Red Cell Distribution Width 13.5 % (11.6-14.8); White Blood Cell Count 4.9 X10^3/uL (4.5-11.0)
[2020-01-29 09:00] LABS: Prothrombin Time 11.6 SECONDS (10.1-12.7)
[2020-01-29 09:03] LABS: PTT Partial Thromboplastin Tim 32 SECONDS (26.4-36.2)
[2020-01-29 09:06] LABS: Lactate (Lactic Acid) 1.4 mmol/L (0.7-2.1)
[2020-01-29 09:07] LABS: Alanine Aminotransferase 69 IU/L (<50); Albumin 4.9 g/dL (3.5-5.0); Albumin Globulin Ratio 1.3 (1.0-2.8); Alkaline Phosphatase 111 U/L (38-126); Aspartate Aminotransferase 82 IU/L (17-59); BUN Creatinine Ratio 12.1 (6-22); Blood Urea Nitrogen 11 mg/dL (9-20); Calcium 9.8 mg/dL (8.4-10.2); Carbon Dioxide 27 mmol/L (22-32); Chloride 101 mmol/L (98-107); Creatine Kinase 256 U/L (55-170); Estimated Glomerular Filt Rate > 60.0 mL/min (>60); Globulin 3.8 g/dL (1.7-4.1); Glucose 110 mg/dL (70-100); HEMOLYSIS < 15 (0-50); Lipase 117 U/L (23-300); Potassium 4.1 mmol/L (3.4-5.1); Sodium 136 mmol/L (137-145); Total Protein 8.7 g/dL (6.3-8.2)
--- NOTE | 2020-01-29 09:07 | PC.NURSE ---
No documented fever @ home, c/o chills and cold sweats.
[2020-01-29 09:12] LABS: D Dimer < 200 ng/mL (<230)
[2020-01-29] MEDS: KETOROLAC 60 MG/2 ML VIAL 30 MG IV (09:12)
[2020-01-29] MEDS: CYCLOBENZAPRINE 10 MG TABLET PO (09:13)
[2020-01-29] MEDS: LORazepam 0.5 MG TABLET 1 MG PO (09:13)
[2020-01-29 09:17] LABS: Erythrocyte Sedimentation Rate 4 MM/HR (0-15)
[2020-01-29 09:18] LABS: Troponin I < 0.012 ng/mL (0.01-0.034)
[2020-01-29 09:19] LABS: C-Reactive Protein Quant < 0.5 mg/dL (<1.0)
[2020-01-29 09:22] LABS: CKMB % Relative Index 0.3 % (1.5-5.0); Creatine Kinase MB 0.89 ng/mL (<2.37); Procalcitonin < 0.05 ng/mL (<0.5)
[2020-01-29 09:24] LABS: Influenza A - CEPHEID Flu A NEGATIVE (NEGATIVE); Influenza B - CEPHEID Flu B NEGATIVE (NEGATIVE)
[2020-01-29 09:33] LABS: WBC Urine None Seen (0-5/HPF)
[2020-01-29 09:35] LABS: Appearance Urine UA CLEAR; Bilirubin Urine UA NEGATIVE (NEGATIVE); Color Urine UA YELLOW; Glucose Urine UA NEGATIVE (Negative); Ketones Urine UA NEGATIVE (NEGATIVE); Leukocyte Esterase Urine UA NEGATIVE (NEGATIVE); Nitrite Urine UA NEGATIVE (Negative); Occult Blood Urine UA NEGATIVE (Negative); Protein Urine UA NEGATIVE (Negative); Urobilinogen Urine UA 0.2 E.U./dL (0.2)
[2020-01-29 09:44] LABS: Bacteria Urine Occasional (0-1); Culture Indicated Urine Cult Not Indicated; RBC Urine 0-1/HPF (0-5/HPF)
== END 2020-01-29 13:27 | disposition home or self-care (01) ==
PROVIDERS: Emergency Provider Emergency Medicine
DX: R05 Cough (principal); R07.89 Other chest pain; R00.0 Tachycardia, unspecified; E86.0 Dehydration; R19.7 Diarrhea, unspecified; R11.2 Nausea with vomiting, unspecified
CPT/HCPCS: 36415; 71045; 80053; 81001; 82550; 82553; 83605; 83690; 84145; 84484; 85025; 85379; 85610; 85651; 85730; 86140; 87040; 87502; 93005; 96361; 96374; 96375; 99284; J1885; J2405